=== PATIENT | male | born 1995 ===

== ENCOUNTER 2016-05-06 14:46 | Emergency (ER) | payer BC ==
--- NOTE | 2016-05-06 15:36 | UC ---
General HPI - HPI Summary HPI Summary: The patient comes in today for: 1. Epistaxis: Onset: 2 hours. Palliative/provocative: Blowing his nose made it worse. Quality: His bleeding would "saturate" the Kleenex. Region/radiation: None. Severity: 0/10 Time: Constant until about 30 minutes ago. Associated symptoms: Event: He blew his nose and the blood started coming out. Rx that thin his blood: None. Injury: None. Treatment: He pinched the nose and leaned forward. He put a cold towel on the bridge of his nose. It bleed about 1.5 hours. It was on the left nostril. HE was in the dorm when this happened. Blood diseases: None. Previous disease: He states that he can't remember the last time that he had a nosebleed. He states that he felt some "dizziness" about an hour ago, but he is feeling better now. He has no other problems with bleeding such as from his gums, intestinal bleeding, melena, hematemesis, or petechai. - History of Current Complaint Chief Complaint: UCUpperExtremity Stated Complaint: NOSEBLEED Time Seen by Provider: 05/06/16 15:30 Hx Obtained From: Patient - Allergy/Home Medications Allergies/Adverse Reactions: Allergies Allergy/AdvReac Type Severity Reaction Status Date / Time Azithromycin [From Zithromax] Allergy Rash Verified 05/06/16 15:24 Cefuroxime [From Ceftin] Allergy Rash Verified 05/06/16 15:24 Sulfamethoxazole Allergy Rash Verified 05/06/16 15:24 w/Trimethoprim [From Bactrim] Home Medications: Home Medications NK [No Home Medications Reported] 05/06/16 [History Confirmed 05/06/16] PMH/Surg Hx/FS Hx/Imm Hx Previously Healthy: Yes Endocrine History Of: Denies: Diabetes, Thyroid Disease, Hyperthyroidism, Hypothyroidism, Dyslipidemia Cardiovascular History Of: Denies: Cardiac Disorders, Hypertension, Pacemaker/ICD, Myocardial Infarction , Congestive Heart Failure, Atrial Fibrillation, Deep Vein Thrombosis, Bleeding Disorders Respiratory History Of: Denies: COPD, Asthma, Bronchitis, Pneumonia, Pulmonary Embolism GI/ History Of: Denies: Gastroesophageal Reflux, Ulcer, Gastrointestinal Bleed, Gall Bladder Disease, Kidney Stones, Diverticulitis, Renal Disease, Urosepsis Neurological History Of: Denies: TIA, CVA, Dementia, Seizures, Migraine Psychological History Of: Denies: Anxiety, Depression, Bipolar Disorder, Schizophrenia, Post Traumatic Stress Disorder Cancer History Of: Denies: Lung Cancer, Colorectal Cancer, Breast Cancer, Prostate Cancer, Cervical Cancer Other History Of: Negative For: HIV, Hepatitis B, Hepatitis C, Anticoagulant Therapy - HE does not take any aspirin for pain. - Surgical History Surgical History: None - Family History Known Family History: Negative: Cardiac Disease, Hypertension - Social History Occupation: Student Alcohol Use: None Substance Use Type: None Smoking Status (MU): Never Smoked Tobacco Review of Systems Constitutional: Negative Skin: Negative Eyes: Negative ENT: Negative Respiratory: Negative Cardiovascular: Negative Gastrointestinal: Negative Genitourinary: Negative Motor: Negative All Other Systems Reviewed And Are Negative: Yes Physical Exam Triage Information Reviewed: Yes Appearance: Well-Appearing, No Pain Distress, Well-Nourished Vital Signs: Initial Vital Signs Temp 99.0 F 05/06/16 15:19 Pulse 90 05/06/16 15:19 Resp 18 05/06/16 15:19 BP 114/72 05/06/16 15:19 Pulse Ox 99 05/06/16 15:19 Vital Signs Reviewed: Yes Eyes: Positive: Conjunctiva Clear. Negative: Discharge ENT: Positive: Hearing grossly normal, TMs normal, Other: - The patient has slight clotting streaks on the inside of his left nares. There is no active bleeding. No clot in the nasal passageway.. Negative: Pharyngeal erythema, Nasal congestion, Nasal drainage, TM bulging, TM dull, TM red, Tonsillar swelling, Tonsillar exudate Dental: Negative: Gross Decay/Caries @, Dental Fracture @ Neck: Positive: Supple, Nontender, No Lymphadenopathy. Negative: Nuchal Rigidity Respiratory: Positive: Chest non-tender, Lungs clear, No respiratory distress, No accessory muscle use. Negative: Crackles, Wheezing Cardiovascular: Positive: RRR, No Murmur Abdomen Description: Positive: Nontender, No Organomegaly, Soft. Negative: Distended, Guarding Musculoskeletal: Positive: Strength Intact, ROM Intact Neurological: Positive: Alert, Muscle Tone Normal Psychological: Positive: Age Appropriate Behavior, Consolable Skin: Negative: rashes, breakdown Course/Dx - Differential Dx - Multi-Symptom Provider Diagnoses: Epistaxis (left nares) resolved. Discharge - Discharge Plan Condition: Stable Disposition: HOME Patient Education Materials: Nosebleed (ED) Additional Instructions: Please sleep upright for the next few days. If there is any re-bleeding, please hold the soft part of the nose together with cold compresses and keep your head elevated.
== END 2016-05-06 15:57 | disposition home or self-care (01) ==
LOC: UCEAST 14:46
DX: R04.0 Epistaxis (principal); Z88.1 Allergy status to other antibiotic agents; Z88.2 Allergy status to sulfonamides
CPT/HCPCS: 99201; G0463